=== PATIENT | female | born 1940 | race African-American/Black ===

== ENCOUNTER 2024-12-08 18:18 | Emergency (ER) | payer OTHER ==
[~2024-12-08] VITALS: Ht 167.6 cm; Wt 120.0 kg
[2024-12-08 18:24] VITALS: TEMP 37.2; O2SAT 98
[2024-12-08 19:00] LABS: BASOPHILS % 0.4 % (0.0-2.0); DIFFERENTIAL COMMENT 0; EOSINOPHILS % 0.3 % (0.0-5.0); HEMATOCRIT. 45.7 % (36.0-48.0); HEMOGLOBIN. 14.6 g/dL (12.0-16.0); LYMPHOCYTES % 7.9 % (20.0-50.0); MEAN CORPUSCULAR HEMOGLOBIN 22.7 pg (28.0-32.0); MEAN CORPUSCULAR VOLUME 70.9 fL (81.0-99.0); MEAN PLATELET VOLUME 8.7 fl (7.4-10.4); MONOCYTES % 4.8 % (2.0-8.0); NEUTROPHILS % 86.6 % (40.0-76.0); PLATELET 262 x1000/uL (130-400); RED BLOOD CELL COUNT 6.45 mill/uL (4.2-5.4); RED CELL DISTRIBUTION WIDTH 15.9 % (11.6-14.6); WHITE BLOOD COUNT 11.6 x1000/uL (4.5-11.0)
[2024-12-08 19:06] LABS: CHLORIDE 105 mEq/L (98-107)
[2024-12-08 19:07] LABS: CARBON DIOXIDE 24 mEq/L (21-32); POTASSIUM 3.2 mEq/L (3.5-5.1); SODIUM 144 mEq/L (136-145)
[2024-12-08 19:08] LABS: CALCIUM 10.4 mg/dL (8.7-10.4); INR 1.1; PROTHROMBIN TIME 12.2 sec (9.6-11.0)
[2024-12-08 19:12] LABS: CREATININE 0.9 mg/dL (0.6-1.0); GLUCOSE 161 mg/dL (70-105)
[2024-12-08 19:13] LABS: UREA NITROGEN BLOOD 13 mg/dL (9-23)
[2024-12-08 19:14] LABS: ALANINE AMINOTRANSFERASE 14 IU/L (10-49); ALBUMIN 4.1 g/dL (3.2-4.8); ASPARTATE AMINOTRANSFERASE 17 IU/L (<34)
[2024-12-08 19:15] LABS: BILIRUBIN DIRECT 0.2 mg/dL (<=3.0); BILIRUBIN TOTAL 0.7 mg/dL (0.1-1.0); PROTEIN TOTAL 7.1 g/dL (6.0-8.3)
[2024-12-08] MEDS ORDERED: POTASSIUM CHLORIDE 20MEQ/PACKET PO ONE (19:30)
[2024-12-08] MEDS: POTASSIUM CHLORIDE 20MEQ/PACKET PO ONE (20:24)
[2024-12-08] MEDS: PANTOPRAZOLE 40MG DR TABLET PO ONE (23:07)
[2024-12-08] MEDS: ACETAMINOPHEN 325MG TABLET PO ONE (23:07)
[2024-12-09 02:35] VITALS: BP 162/85; PULSE 116; RESP 17; O2SAT 96
== END 2024-12-09 02:56 ==
LOC: ER 18:18
DX: R19.7 Diarrhea, unspecified (principal); E11.9 Type 2 diabetes mellitus without complications; I10 Essential (primary) hypertension; I48.91 Unspecified atrial fibrillation; Z86.73 Personal history of transient ischemic attack (TIA), and cerebral infarction without residual deficits; Z79.899 Other long term (current) drug therapy
CPT/HCPCS: 36415; 74176; 80048; 80076; 85025; 99285